=== PATIENT | male | born 1975 | race Caucasian/White ===

== ENCOUNTER 2017-04-10 18:56 | Emergency (ER) | payer MEDICAID, OTHER ==
[~2017-04-10] VITALS: Ht 177.8 cm; Wt 138.3 kg
[2017-04-10] MEDS ORDERED: GLIPIZIDE (19:25)
[2017-04-10] MEDS ORDERED: LANTUS (19:25)
[2017-04-10] MEDS ORDERED: METFORMIN (19:25)
[2017-04-10] MEDS ORDERED: PERCOCET (19:25)
[2017-04-10] MEDS ORDERED: HYDROCODONE/APAP 10-325 MG TABLET PO ONE (19:45)
[2017-04-10] MEDS ORDERED: INSULIN REGULAR, HUMAN 1,000 UNITS/10 ML VIAL SUBCUT ONE (19:45)
[2017-04-10] MEDS ORDERED: HYDROCODONE/APAP 10-325 MG TABLET ONE (19:59)
[2017-04-10] MEDS ORDERED: INSULIN REGULAR, HUMAN 300 UNIT/3 ML VIAL ONE (20:00)
[2017-04-10] MEDS ORDERED: OXYCODONE/APAP 5-325 MG TABLET PO ONE (20:15)
--- NOTE | 2017-04-10 20:20 | NUR ---
Patient discharged to home in stable conditon. Written and verbal after care instructions given. Patient verbalizes understanding of instructions.
[2017-04-10] MEDS ORDERED: OXYCODONE/APAP 5-325 MG TABLET ONE (20:31)
== END 2017-04-10 20:21 | disposition home or self-care (01) ==
LOC: ER 19:02
DX: G89.4 Chronic pain syndrome (principal); E11.9 Type 2 diabetes mellitus without complications; Z88.6 Allergy status to analgesic agent; M54.5 Low back pain
CPT/HCPCS: A4663; J1815

== ENCOUNTER 2018-02-11 22:09 | Emergency (ER) | payer MEDICAID, OTHER ==
[~2018-02-11] VITALS: Ht 177.8 cm; Wt 136.5 kg
[~2018-02-11 22:09] MED LIST: GLIPIZIDE; LANTUS; METFORMIN; PERCOCET
--- NOTE | 2018-02-11 22:25 | NUR ---
DR DANIA CORLEY MD AT BEDSIDE FOR MSE.
[2018-02-11 22:54] LABS: BASOPHILS # (AUTO) 0.1 K/uL (0.0-8.0); BASOPHILS % (AUTO) 0.9 % (0.0-2.0); EOSINOPHILS # (AUTO) 0.3 K/uL (0.0-0.7); EOSINOPHILS % (AUTO) 3.2 % (0.0-7.0); HEMATOCRIT 41.7 % (36.7-47.1); HEMOGLOBIN 14.2 g/dL (12.5-16.3); LYMPHOCYTES # (AUTO) 3.5 K/uL (20.0-40.0); MEAN CORPUSCULAR HEMOGLOBIN 28.7 uug (23.8-33.4); MEAN CORPUSCULAR HGB CONC 34 g/dL (32.5-36.3); MEAN CORPUSCULAR VOLUME 83.8 fL (73.0-96.2); MONOCYTES # (AUTO) 0.9 K/uL (2.0-10.0); MONOCYTES % (AUTO) 9.1 % (0.0-11.0); NEUTROPHILS # (AUTO) 4.9 K/uL (1.8-8.9); NEUTROPHILS % (AUTO) 50.8 % (38.5-71.5); PLATELET COUNT (AUTO) 212 K/uL (152-348); RED BLOOD CELL COUNT(AUTO) 4.97 MIL/uL (4.06-5.63); WHITE BLOOD COUNT (AUTO) 9.7 K/uL (3.6-10.2)
[2018-02-11 23:14] LABS: CREATININE 1.1 mg/dL (0.6-1.3); POTASSIUM 4.1 mmol/L (3.5-5.1)
[2018-02-11 23:20] LABS: *BILIRUBIN,URIN NEGATIVE (NEGATIVE); *BLOOD, URINE 1+ (NEGATIVE); *CLARITY,URINE CLEAR (CLEAR); *COLOR,URINE YELLOW (YELLOW); *KETONES,URINE TRACE (NEGATIVE); *PROTEIN,URINE TRACE (NEGATIVE); *UROBILINOGEN,URINE 0.2 E.U./dl (NORMAL); LEUKOCYTE ESTERASE ,URINE NEGATIVE (NEGATIVE); NITRITE, URINE NEGATIVE (NEGATIVE); PH,URINE 5.5 (5.0-8.0)
[2018-02-11 23:28] LABS: UGLUCOSE 3+ (NEGATIVE)
[2018-02-11] MEDS ORDERED: HYDROCODONE/APAP 10-325 MG TABLET ONE (23:28)
[2018-02-11] MEDS ORDERED: HYDROCODONE/APAP 10-325 MG TABLET PO ONE (23:30)
[2018-02-11 23:39] LABS: BILIRUBIN,DIRECT 0.1 mg/dL (0.0-0.2); BILIRUBIN,TOTAL 0.2 mg/dL (0.2-1.0)
[2018-02-11 23:39] LABS: BACTERIA,URINE NONE SEEN /HPF (NONE SEEN); SQUAMOUS EPITHELIAL CELL,UR FEW /HPF (NONE SEEN); WBC,URINE 0-3 /HPF (0-3)
--- NOTE | 2018-02-11 23:44 | NUR ---
US TECH AT BEDSIDE.
[2018-02-12] MEDS ORDERED: FUROSEMIDE 20 MG TABLET PO ONE
[2018-02-12] MEDS ORDERED: METFORMIN HCL 500 MG TABLET PO ONE
[2018-02-12] MEDS ORDERED: FUROSEMIDE 20 MG TABLET ONE (00:10)
[2018-02-12] MEDS ORDERED: METFORMIN HCL 500 MG TABLET ONE (00:10)
[2018-02-12] MEDS ORDERED: POTASSIUM CHLORIDE 20 MEQ TAB.PRT.SR PO ONE (00:45)
[2018-02-12] MEDS ORDERED: POTASSIUM CHLORIDE 20 MEQ TAB.PRT.SR ONE (00:45)
--- NOTE | 2018-02-12 00:45 | NUR ---
Patient discharged to home in stable conditon. Written and verbal after care instructions given. Patient verbalizes understanding of instructions. pt ambulated from ER w/ steady gait. No distress noted. Pt took all personal belongings.
[2018-02-12 00:47] VITALS: BP 136/77
== END 2018-02-12 00:49 | disposition home or self-care (01) ==
LOC: ER 22:10
DX: R60.9 Edema, unspecified (principal); G89.4 Chronic pain syndrome; M54.9 Dorsalgia, unspecified; E11.9 Type 2 diabetes mellitus without complications; E66.01 Morbid (severe) obesity due to excess calories; Z71.6 Tobacco abuse counseling; F17.210 Nicotine dependence, cigarettes, uncomplicated; Z88.8 Allergy status to other drugs, medicaments and biological substances
CPT/HCPCS: 36415; 70030-TC; 71045; 85025; 93005; A4663